=== PATIENT | male | born 1965 | race African-American/Black ===

== ENCOUNTER 2017-03-25 07:52 | Inpatient (IN) | payer MEDICAID, OTHER ==
[~2017-03-25] VITALS: Ht 175.3 cm; Wt 89.4 kg
[2017-03-25] VITALS (17 sets, daily range): BP systolic 106–141; BP diastolic 52–76
[2017-03-25] MEDS ORDERED: NITROGLYCERIN OINT 1GM/INCH UDPKT TD STA (08:25)
[2017-03-25] MEDS ORDERED: MORPHINE SULFATE 4 MG/ML CPJ (NOT FOR IM USE) IV STA (08:25)
[2017-03-25] MEDS ORDERED: ONDANSETRON HCL 4MG/2ML VIAL IV STA (08:25)
[2017-03-25 08:44] LABS: BASOPHILS % 0.8 % (0.0-2.0); EOSINOPHILS % 0.5 % (0.0-5.0); HEMATOCRIT. 43.4 % (42.0-52.0); HEMOGLOBIN. 14.7 g/dL (14.0-18.0); LYMPHOCYTES % 16.6 % (20.0-50.0); MEAN CORPUSCULAR HEMOGLOBIN 28.8 pg (28.0-32.0); MEAN CORPUSCULAR VOLUME 84.9 fL (80.0-94.0); MEAN PLATELET VOLUME 9.3 fl (7.4-10.4); NEUTROPHILS % 75.1 % (40.0-76.0); PLATELET 183 x1000/uL (130-400); RED BLOOD CELL COUNT 5.12 mill/uL (4.7-6.1); RED CELL DISTRIBUTION WIDTH 13.8 % (11.6-14.6)
[2017-03-25 08:51] LABS: CHLORIDE 111 mEq/L (98-107)
[2017-03-25 08:52] LABS: PARTIAL THROMBOPLASTIN TIME 27.4 sec (24.0-34.0); PROTHROMBIN TIME 10.4 sec
[2017-03-25 08:53] LABS: CARBON DIOXIDE 21 mEq/L (21-32)
[2017-03-25 08:54] LABS: ETHANOL BLOOD < 10 mg/dL
[2017-03-25] MEDS ORDERED: LORAZEPAM 2MG/ML CPJ IV ONE (09:00)
[2017-03-25 10:37] LABS: CLARITY URINE CLEAR (CLEAR); COLOR URINE YELLOW (YELLOW); GLUCOSE URINE NEGATIVE (NEGATIVE); KETONES URINE NEGATIVE (NEGATIVE); LEUKOCYTE ESTERASE URINE NEGATIVE (NEGATIVE); NITRITE URINE NEGATIVE (NEGATIVE); OCCULT BLOOD URINE NEGATIVE (NEGATIVE); PH URINE 6.5 (4.5-8.0); PROTEIN URINE NEGATIVE (NEGATIVE); SPECIFIC GRAVITY URINE 1.024 (1.005-1.030); UROBILINOGEN URINE 0.2 E.U./dL (0.2-1.0)
[2017-03-25] MEDS ORDERED: ENOXAPARIN 80MG/0.8ML SYR SUBCUT ONE (10:45)
[2017-03-25] MEDS ORDERED: ENOXAPARIN 100MG/ML SYR SUBCUT ONE (11:00)
[2017-03-25 11:15] LABS: *AMPHETAMINES SCREEN URINE NEGATIVE (NEGATIVE); *BARBITURATES SCREEN URINE NEGATIVE (NEGATIVE); *BENZODIAZEPINES SCREEN URINE NEGATIVE (NEGATIVE); *COCAINE SCREEN URINE NEGATIVE (NEGATIVE); CANNABINOID URINE SCREEN PRESUMTIVE POSITIVE (NEGATIVE); METHADONE URINE SCREEN NEGATIVE (NEGATIVE); OPIATES URINE SCREEN PRESUMTIVE POSITIVE (NEGATIVE); PHENCYCLIDINE URINE SCREEN NEGATIVE (NEGATIVE)
[2017-03-25] MEDS ORDERED: MORPHINE SULFATE 4 MG/ML CPJ (NOT FOR IM USE) IV ONE (11:15)
[2017-03-25] MEDS ORDERED: LOVA10TA54 PO (13:54)
[2017-03-25] MEDS ORDERED: OMEP20CA10 PO (13:54)
[2017-03-25] MEDS ORDERED: CLONIDINE 0.2MG TABLET PO PRN (14:15)
[2017-03-25] MEDS ORDERED: ONDANSETRON HCL 4MG/2ML VIAL IV PRN (14:30)
[2017-03-25] MEDS ORDERED: IPRATROPIUM/ALBUTEROL 0.5-3(2.5)MG/3ML NEB INH PRN (14:30)
[2017-03-25] MEDS ORDERED: CLONIDINE 0.1MG TABLET PO PRN ×2 (14:30)
[2017-03-25] MEDS ORDERED: DIPHENHYDRAMINE 50MG/ML VIAL IV PRN (14:30)
[2017-03-25] MEDS: LOSARTAN POTASSIUM 25 MG TABLET PO SCH ×2 (16:05→23:00)
[2017-03-25] MEDS: NITROGLYCERIN OINT 1GM/INCH UDPKT TD SCH ×3 (16:05→23:12)
[2017-03-25 18:30] LABS: CREATINE KINASE MB FRACTION 20.6 ng/mL (0.5-3.6)
[2017-03-25 19:17] LABS: TROPONIN I 7.3 ng/mL (0.00-0.04)
[2017-03-25] MEDS: METOPROLOL TARTRATE 25MG TABLET PO SCH (20:59)
[2017-03-25] MEDS ORDERED: ENOXAPARIN 100MG/ML SYR SUBCUT SCH (21:00)
[2017-03-26] VITALS (54 sets, daily range): BP systolic 81–144; BP diastolic 39–86
[2017-03-26] MEDS: NITROGLYCERIN OINT 1GM/INCH UDPKT TD SCH ×6 (03:42→23:44)
[2017-03-26 07:04] LABS: BASOPHILS % 0.3 % (0.0-2.0); EOSINOPHILS % 0.2 % (0.0-5.0); HEMATOCRIT. 41.3 % (42.0-52.0); HEMOGLOBIN. 13.8 g/dL (14.0-18.0); LYMPHOCYTES % 20.5 % (20.0-50.0); MEAN CORPUSCULAR HEMOGLOBIN 28.9 pg (28.0-32.0); MEAN CORPUSCULAR VOLUME 86.3 fL (80.0-94.0); MEAN PLATELET VOLUME 9.8 fl (7.4-10.4); MONOCYTES % 10.1 % (2.0-8.0); NEUTROPHILS % 68.9 % (40.0-76.0); PLATELET 174 x1000/uL (130-400); RED BLOOD CELL COUNT 4.78 mill/uL (4.7-6.1)
[2017-03-26 07:34] LABS: CHLORIDE 107 mEq/L (98-107)
[2017-03-26 08:01] LABS: CARBON DIOXIDE 26 mEq/L (21-32); CREATINE KINASE 677 IU/L (39-308); CREATINE KINASE MB FRACTION 14.1 ng/mL (0.5-3.6); HDL CHOLESTEROL 32 mg/dL (40-59); LDL CHOLESTEROL 167 mg/dL (5-100)
[2017-03-26] MEDS: LOSARTAN POTASSIUM 25 MG TABLET PO SCH ×2 (09:00→21:00)
[2017-03-26] MEDS: METOPROLOL TARTRATE 25MG TABLET PO SCH ×2 (09:00→21:00)
[2017-03-26] MEDS ORDERED: FENTANYL CITRATE/PF 50MCG/ML 2ML VIAL ONE (12:19)
[2017-03-26] MEDS ORDERED: MIDAZOLAM HCL 2 MG/2 ML VIAL ONE (12:19)
[2017-03-26] MEDS ORDERED: IODIXANOL 320MG/ML 100 ML BOTTLE IV ONE (12:20)
[2017-03-26] MEDS ORDERED: ASPIRIN/SOD BICARB/CITRIC ACID 324MG TAB EFF ONE (12:20)
[2017-03-26] MEDS ORDERED: LIDOCAINE HCL 1% 20ML VIAL (Pyxis) INJ ONE (12:21)
[2017-03-26] MEDS ORDERED: HEPARIN SODIUM 1,000 UNIT/1ML VIAL IV ONE (12:38)
[2017-03-26] MEDS ORDERED: SODIUM CHLORIDE 0.45% 1,000 ML IV ONE (13:15)
[2017-03-26] MEDS ORDERED: ACETAMINOPHEN 325MG TABLET PO PRN (13:15)
[2017-03-26] MEDS ORDERED: CLOPIDOGREL 75MG TABLET PO NR (13:15)
[2017-03-26] MEDS ORDERED: ATROPINE SULFATE 1MG/10ML SYR IV PRN (13:15)
[2017-03-26] MEDS ORDERED: MORPHINE SULFATE 2 MG/ML CPJ (NOT FOR IM USE) IV PRN (13:15)
[2017-03-26] MEDS ORDERED: ONDANSETRON HCL 4MG/2ML VIAL IV PRN (13:15)
[2017-03-26] MEDS ORDERED: NICARDIPINE 100MCG/ML 10ML VIAL (CATH LAB) IV ONE (14:00)
[2017-03-26] MEDS ORDERED: NITROGLYCERIN 50MCG/ML 10ML VIAL (CATH LAB) IV ONE (14:00)
[2017-03-26] MEDS: ENOXAPARIN 80MG/0.8ML SYR SUBCUT SCH (17:00)
[2017-03-26] MEDS ORDERED: ATORVASTATIN CALCIUM 20MG TABLET PO SCH (21:00)
[2017-03-27] VITALS (18 sets, daily range): BP systolic 93–125; BP diastolic 50–79
[2017-03-27] MEDS: NITROGLYCERIN OINT 1GM/INCH UDPKT TD SCH ×4 (03:55→16:33)
[2017-03-27] MEDS: ENOXAPARIN 80MG/0.8ML SYR SUBCUT SCH ×2 (05:42→17:29)
[2017-03-27 06:44] LABS: BASOPHILS % 0.7 % (0.0-2.0); EOSINOPHILS % 0.5 % (0.0-5.0); HEMOGLOBIN. 14.1 g/dL (14.0-18.0); LYMPHOCYTES % 26.1 % (20.0-50.0); MEAN CORPUSCULAR HEMOGLOBIN 28.9 pg (28.0-32.0); MEAN CORPUSCULAR VOLUME 85.9 fL (80.0-94.0); MEAN PLATELET VOLUME 9.7 fl (7.4-10.4); MONOCYTES % 11.7 % (2.0-8.0); PLATELET 171 x1000/uL (130-400); RED BLOOD CELL COUNT 4.89 mill/uL (4.7-6.1); RED CELL DISTRIBUTION WIDTH 13.5 % (11.6-14.6)
[2017-03-27 07:05] LABS: CHLORIDE 107 mEq/L (98-107)
[2017-03-27 07:27] LABS: CARBON DIOXIDE 24 mEq/L (21-32)
[2017-03-27] MEDS ORDERED: ASPIRIN 81MG TABLET PO SCH (09:00)
[2017-03-27] MEDS ORDERED: CLOPIDOGREL 75MG TABLET PO SCH (09:00)
[2017-03-27] MEDS: METOPROLOL TARTRATE 25MG TABLET PO SCH (09:00)
[2017-03-27] MEDS: LOSARTAN POTASSIUM 25 MG TABLET PO SCH (09:00)
== END 2017-03-27 17:25 | disposition short-term general hospital (02) | DRG 190 ==
LOC: ER 08:04 → EDBEDREQ 11:35 → ENRESERV 11:55 → EDBEDREQ 13:03 → EDBEDREQSVC 13:03 → ER 13:21 → 3WST 13:34
PROVIDERS: ADMIT Internal Medicine; ATTEND Internal Medicine
PROC: 4A023N7 Measurement of Cardiac Sampling and Pressure, Left Heart, Percutaneous Approach (ICD-10-PCS; principal; 2017-03-26)
PROC: B2151ZZ Fluoroscopy of Left Heart using Low Osmolar Contrast (ICD-10-PCS; 2017-03-26)
PROC: B2111ZZ Fluoroscopy of Multiple Coronary Arteries using Low Osmolar Contrast (ICD-10-PCS; 2017-03-26)
DX: I21.4 Non-ST elevation (NSTEMI) myocardial infarction (principal); I10 Essential (primary) hypertension; E78.00 Pure hypercholesterolemia, unspecified; F12.90 Cannabis use, unspecified, uncomplicated; F17.210 Nicotine dependence, cigarettes, uncomplicated; R00.1 Bradycardia, unspecified; I24.9 Acute ischemic heart disease, unspecified; Z79.899 Other long term (current) drug therapy
CPT/HCPCS: 36415; 71010; 80053; 80061; 80305; 81003; 82550; 82553; 82962; 83690; 83735; 83880; 84443; 84484; 85025; 85379; 85610; 85730; 87040; 93005; 93306; 93458; 96372; 96374; 96375; 96376; 99285; C1769; C1893; G0482; J1644; J1650; J2060; J2250; J2270; J2405; J3010; J3490; Q9967